=== PATIENT | male | born 1945 | race Caucasian/White ===

== ENCOUNTER 2016-10-20 00:27 | Emergency (ER) | payer MEDICARE, OTHER ==
[2016-10-20] MEDS ORDERED: ACETAMINOPHEN 325 MG TABLET PO ONE (01:18)
[2016-10-20] MEDS ORDERED: ASPIRIN 81 MG TABLET, CHEWABLE PO ONE (05:26)
[2016-10-20] MEDS ORDERED: IPRATROPIUM/ALBUTEROL 0.5-2.5 MG/3 ML AMPUL NEB ONE (05:26)
[2016-10-20] MEDS ORDERED: PREDNISONE 20 MG TABLET PO ONE (05:27)
--- NOTE | 2016-10-20 05:28 | ER Document Report ---
ED Medical Screen (RME) - General Chief Complaint: Epigastric Pain Stated Complaint: CHEST PAIN Time Seen by Provider: 10/20/16 05:25 Mode of Arrival: Ambulatory Information source: Patient Notes: Patient presents complaining of midsternal chest pain that he describes as a pressure that started around 9:30 PM. Patient currently states that the pain has completely resolved. Patient does report nausea but denies any vomiting. Patient denies any shortness of breath. Patient denies any change in his chronic cough. Patient does state that he uses a nebulizer at home but is currently out of his medications. hx: Dyslipidemia, GERD TRAVEL OUTSIDE OF THE [place] IN LAST 30 DAYS: No - Related Data Allergies/Adverse Reactions: No Known Allergies Allergy (Verified 06/24/15 09:09) Past Medical History - Past Medical History Cardiac Medical History: Reports: Hx Hypercholesterolemia Denies: Hx Coronary Artery Disease - HIGH CHOLESTEROL, Hx Heart Attack, Hx Hypertension Pulmonary Medical History: Denies: Hx Asthma, Hx Bronchitis, Hx COPD, Hx Pneumonia Neurological Medical History: Denies: Hx Cerebrovascular Accident, Hx Seizures Renal/ Medical History: Denies: Hx Peritoneal Dialysis GI Medical History: Reports: Hx Gastroesophageal Reflux Disease Musculoskeltal Medical History: Reports Hx Arthritis Past Surgical History: Reports: Hx Orthopedic Surgery - left arm - Immunizations Hx Diphtheria, Pertussis, Tetanus Vaccination: Yes Physical Exam - Vital signs Vitals: Temp Pulse Resp BP Pulse Ox 97.7 F 78 18 194/83 H 96 10/20/16 00:39 10/20/16 00:39 10/20/16 00:39 10/20/16 00:39 10/20/16 00:39 - Respiratory Respiratory status: No respiratory distress Breath sounds: Wheezing Chest palpation: Normal - Cardiovascular Rhythm: Regular Heart sounds: S1 appreciated, S2 appreciated Course - Vital Signs Vital signs: Temp Pulse Resp BP Pulse Ox 97.7 F 78 18 194/83 H 96 10/20/16 00:39 10/20/16 00:39 10/20/16 00:39 10/20/16 00:39 10/20/16 00:39
[2016-10-20 06:10] LABS: ABSOLUTE BASOPHILS # (AUTO) 0.1 10^3/uL (0.0-0.2); ABSOLUTE EOSINOPHILS # (AUTO) 0.1 10^3/uL (0.0-0.6); ABSOLUTE LYMPHOCYTES (AUTO) 1.6 10^3/uL (0.5-4.7); ABSOLUTE MONOCYTES (AUTO) 0.6 10^3/uL (0.1-1.4); ABSOLUTE NEUT (AUTO) 8.3 10^3/uL (1.7-8.2); BASOPHILS % (AUTO) 0.6 % (0-2); EOSINOPHILS % (AUTO) 0.8 % (0-6); HEMATOCRIT 51.5 % (37.9-51.0); HEMOGLOBIN 17.1 g/dL (13.5-17.0); HGB HCT DIFFERENCE -0.2; LYMPHOCYTES % (AUTO) 14.7 % (13-45); MEAN CORPUSCULAR HEMOGLOBIN 30.3 pg (27.0-33.4); MEAN CORPUSCULAR HGB CONC 33.2 g/dL (32.0-36.0); MEAN CORPUSCULAR VOLUME 91 fl (80-97); MONOCYTES % (AUTO) 5.5 % (3-13); RED BLOOD COUNT 5.65 10^6/uL (4.35-5.55); RED CELL DISTRIBUTION WIDTH 12.8 % (11.5-14.0); SEGMENTED NEUTROPHILS % (AUTO) 78.4 % (42-78); WHITE BLOOD COUNT 10.6 10^3/uL (4.0-10.5)
[2016-10-20 06:22] LABS: ALANINE AMINOTRANSFERASE 34 U/L (21-72); ALBUMIN 3.8 g/dL (3.5-5.0); ALKALINE PHOSPHATASE 94 U/L (38-126); ANION GAP 10 (5-19); ASPARTATE AMINO TRANSFERASE 25 U/L (17-59); BILIRUBIN,DIRECT 0.4 mg/dL (0.0-0.4); BILIRUBIN,TOTAL 0.8 mg/dL (0.2-1.3); BLOOD UREA NITROGEN 9 mg/dL (7-20); CALCIUM 9.4 mg/dL (8.4-10.2); CARBON DIOXIDE 27 mmol/L (22-30); CHLORIDE 102 mmol/L (98-107); CREATINE KINASE 77 U/L (55-170); CREATININE RESULT 0.89 mg/dL (0.52-1.25); GLUCOSE 161 mg/dL (75-110); MAGNESIUM 2.1 mg/dL (1.6-2.3); POTASSIUM 4.4 mmol/L (3.6-5.0); SODIUM 139.2 mmol/L (137-145); TOTAL PROTEIN 7.1 g/dL (6.3-8.2)
[2016-10-20] MEDS ORDERED: METOCLOPRAMIDE HCL ORAL SOLN 10 MG/10 ML UDCUP PO ONE (06:25)
[2016-10-20] MEDS ORDERED: LIDOCAINE 2% VISCOUS SOLN 20 ML UDCUP PO ONE (06:25)
[2016-10-20] MEDS ORDERED: MAG HYDROX/AL HYDROX/SIMETH SUSP 30 ML UDCUP PO ONE (06:25)
[2016-10-20 06:32] LABS: CREATINE KINASE MB 0.67 ng/mL (<4.55); TROPONIN I < 0.012 ng/mL
--- NOTE | 2016-10-20 06:56 | RADIOLOGY REPORT (SQ) ---
EXAM DESCRIPTION: CHEST PA/LAT COMPLETED DATE/TIME: 10/20/2016 6:47 am REASON FOR STUDY: cp COMPARISON: 06/22/2015. EXAM PARAMETERS: NUMBER OF VIEWS: two views TECHNIQUE: Digital Frontal and Lateral radiographic views of the chest acquired. RADIATION DOSE: NA LIMITATIONS: none FINDINGS: LUNGS AND PLEURA: Small bandlike atelectasis or scar of the lingula consistent with prior exam, 06/22/2015. Mild interstitial markings slightly worsened. MEDIASTINUM AND HILAR STRUCTURES: No masses or contour abnormalities. HEART AND VASCULAR STRUCTURES: Heart normal size. No evidence for failure. BONES: No acute findings. HARDWARE: None in the chest. OTHER: No other significant finding. IMPRESSION: Mild interstitial markings may indicate pulmonary edema and/or chronic interstitial lung disease. Likely lingular scar or recurrent lingular pneumonia. TECHNICAL DOCUMENTATION: JOB ID: [id number] [employer]- All Rights Reserved
[2016-10-20] MEDS ORDERED: AZITHROMYCIN 250 MG TABLET PO ONE (07:59)
[2016-10-20] MEDS ORDERED: ALBUTEROL SULFATE HFA (90 MCG/PUFF) 8 GM MDI (1 MDI/ER DISP) IH ONE (09:32)
--- NOTE | 2016-10-20 09:32 | ER Document Report ---
ED General - General Chief Complaint: Epigastric Pain Stated Complaint: CHEST PAIN Time Seen by Provider: 10/20/16 05:25 Mode of Arrival: Ambulatory TRAVEL OUTSIDE OF THE [place] IN LAST 30 DAYS: No - HPI Patient complains to provider of: Epigastric chest pain Notes: Patient coming in today for epigastric pain and chest pain. Patient states started at 9:00 night prior to arrival. Patient states no nausea no vomiting states he did have pizza prior to having the chest pain. Patient states he takes omeprazole once daily although this is prescribed for twice daily. Patient states compliance with medication. Patient does smoke states he does have a history of COPD currently out of his inhalers. Patient denies any shortness of breath. Patient states cough nonproductive. Denies any cardiac history. Patient upon my examination is resting comfortably easily arousable states that currently at this time chest pain is much resolved with Tylenol. 1 out of 10 - Related Data Allergies/Adverse Reactions: No Known Allergies Allergy (Verified 06/24/15 09:09) Past Medical History - General Information source: Patient - Social History Smoking Status: Current Every Day Smoker Frequency of alcohol use: None Drug Abuse: None Family History: Reviewed & Not Pertinent Patient has suicidal ideation: No Patient has homicidal ideation: No - Past Medical History Cardiac Medical History: Reports: Hx Hypercholesterolemia Denies: Hx Coronary Artery Disease - HIGH CHOLESTEROL, Hx Heart Attack, Hx Hypertension Pulmonary Medical History: Denies: Hx Asthma, Hx Bronchitis, Hx COPD, Hx Pneumonia Neurological Medical History: Denies: Hx Cerebrovascular Accident, Hx Seizures Renal/ Medical History: Denies: Hx Peritoneal Dialysis GI Medical History: Reports: Hx Gastroesophageal Reflux Disease Musculoskeltal Medical History: Reports Hx Arthritis Past Surgical History: Reports: Hx Orthopedic Surgery - left arm - Immunizations Hx Diphtheria, Pertussis, Tetanus Vaccination: Yes Review of Systems - Review of Systems Constitutional: No symptoms reported EENT: No symptoms reported Cardiovascular: Chest pain Respiratory: No symptoms reported Gastrointestinal: No symptoms reported Genitourinary: No symptoms reported Male Genitourinary: No symptoms reported Musculoskeletal: No symptoms reported Skin: No symptoms reported Hematologic/Lymphatic: No symptoms reported Neurological/Psychological: No symptoms reported -: Yes All other systems reviewed and negative Physical Exam - Vital signs Vitals: Temp Pulse Resp BP Pulse Ox 97.7 F 78 18 194/83 H 96 10/20/16 00:39 10/20/16 00:39 10/20/16 00:39 10/20/16 00:39 10/20/16 00:39 Interpretation: Normal - General General appearance: Appears well, Alert - HEENT Head: Normocephalic, Atraumatic Eyes: Normal Pupils: PERRL - Respiratory Respiratory status: No respiratory distress Chest status: Nontender Breath sounds: Rhonchi, Wheezing Chest palpation: Normal - Cardiovascular Rhythm: Regular Heart sounds: Normal auscultation Murmur: No - Abdominal Inspection: Normal Distension: No distension Bowel sounds: Normal Tenderness: Nontender Organomegaly: No organomegaly - Back Back: Normal, Nontender - Extremities General upper extremity: Normal inspection, Nontender, Normal color, Normal ROM , Normal temperature General lower extremity: Normal inspection, Nontender, Normal color, Normal ROM , Normal temperature, Normal weight bearing. No: Minesh's sign - Neurological Neuro grossly intact: Yes Cognition: Normal Orientation: AAOx4 Lopez Coma Scale Eye Opening: Spontaneous Lopez Coma Scale Verbal: Oriented Lopez Coma Scale Motor: Obeys Commands Lopez Coma Scale Total: 15 Speech: Normal Motor strength normal: LUE, RUE, LLE, RLE Sensory: Normal - Psychological Associated symptoms: Normal affect, Normal mood - Skin Skin Temperature: Warm Skin Moisture: Dry Skin Color: Normal Course - Re-evaluation Re-evalutation: 10/20/16 09:50 Laboratory results did not show any critical pathology. Troponins are negative 2. Repeat EKG and initial EKG are negative for any acute pathology. Patient is examination is consistent with wheezing possible early bronchitis. Patient was started on prednisone inhalers and Zithromax. Patient was encouraged to continue taking his omeprazole as prescribed and follow-up with a GI specialist. Patient did have total resolution of pain after GI cocktail. The patient has atypical chest pain as the patient's chest pain is not suggestive of pulmonary embolus, cardiac ischemia, aortic dissection, or other serious etiology. Given the extremely low risk of these diagnoses further testing and evaluation for these possibilities does not appear to be indicated at this time. The patient has been instructed to return if the symptoms worsen or change in any way. 10/20/16 09:52 - Vital Signs Vital signs: Temp Pulse Resp BP Pulse Ox 97.7 F 79 16 145/94 H 92 10/20/16 00:39 10/20/16 00:39 10/20/16 09:01 10/20/16 09:01 10/20/16 09:01 - Laboratory Result Diagrams: 10/20/16 05:54 10/20/16 05:54 Laboratory results interpreted by me: 10/20/16 10/20/16 05:54 05:54 WBC 10.6 H RBC 5.65 H Hgb 17.1 H Hct 51.5 H Seg Neutrophils % 78.4 H Absolute Neutrophils 8.3 H Glucose 161 H Discharge - Discharge Clinical Impression: Epigastric pain COPD (chronic obstructive pulmonary disease) Qualifiers: COPD type: unspecified COPD Qualified Code(s): J44.9 - Chronic obstructive pulmonary disease, unspecified Condition: Good Disposition: ADMITTED OBSERVATION Instructions: Abdominal Pain ([facility]), Chronic Obstructive Lung Disease ([facility]) Additional Instructions: Examination today shows a normal EKG normal lab work looking for signs of a heart attack. Your chest x-ray is concerning for possible beginning of bronchitis or pneumonia. We will start you on a medication called azithromycin for the bronchitis we will also place you on an inhaler 2 puffs every 4 hours for the next 5 days and steroids to aid with her wheezing and breathing. Please follow-up with your primary care physician. Your pain to his pain today may be related to gastritis. I would highly recommend following up with your doctor possible GI specialist. We will start a medication called omeprazole. Please take as directed. Prescriptions: Azithromycin [Zithromax 250 mg Tablet] 250 mg PO ASDIR PRN #6 tablet PRN Reason: Omeprazole 20 mg PO DAILY #14 capsule. Prednisone [Deltasone] 40 mg PO DAILY 5 Days
[2016-10-20 09:38] VITALS: BP 145/94
--- NOTE | 2016-10-22 09:26 | EKG REPORT ---
SEVERITY:- NORMAL ECG - SINUS RHYTHM : Confirmed by: Lynda Diaz 22-Oct-2016 09:24:44
--- NOTE | 2016-10-22 09:26 | EKG REPORT ---
SEVERITY:- OTHERWISE NORMAL ECG - SINUS RHYTHM BORDERLINE LEFT AXIS DEVIATION : Confirmed by: Lynda Diaz 22-Oct-2016 09:24:40
== END 2016-10-20 09:48 | disposition admitted as inpatient to this hospital (09) ==
LOC: ER 00:27
DX: J44.9 Chronic obstructive pulmonary disease, unspecified (principal); K21.9 Gastro-esophageal reflux disease without esophagitis; T47.1X6A Underdosing of other antacids and anti-gastric-secretion drugs, initial encounter; Z91.138 Patient's unintentional underdosing of medication regimen for other reason; Z91.14 Patient's other noncompliance with medication regimen; Z79.899 Other long term (current) drug therapy; R05 Cough; R07.89 Other chest pain; R10.13 Epigastric pain; F17.200 Nicotine dependence, unspecified, uncomplicated
CPT/HCPCS: 93005; 94640; 99285; 36415; 82553; 82550; 83690; 83735; 85025; 80053; 84484; 71020; 93010; A9270 ×6; J3490 ×2; J7512; J7620

== ENCOUNTER 2018-08-09 21:05 | Emergency (ER) | payer MEDICARE, OTHER ==
[2018-08-09] MEDS ORDERED: NORMAL SALINE 1000 ML 1,000 ML IV ONE ×2 (22:03→22:20)
--- NOTE | 2018-08-09 22:25 | ER Document Report ---
ED General - General Chief Complaint: Shortness Of Breath Stated Complaint: SHORTNESS OF BREATH Time Seen by Provider: 08/09/18 21:56 Primary Care Provider: RHEA DUFFY MD [ACTIVE STAFF] - 08/11/18 Notes: Patient is a 72 year old male that comes to the Emergency Department for chief complaint of chills and breaking out into sweats since yesterday evening, he states today he has also developed a cough, has had increased episodes of chills, sweats, believes he is running a fever. He denies chest pain, headache, abdominal pain, flank pain. He did have nausea earlier today. Patient received chemotherapy on Saturday, he has a history of lung cancer, status post left lung removal 2 months ago at [place], follows with oncologist Dr. Duffy. Former smoker. Past medical history of GERD and hyperlipidemia. Denies medical history otherwise. TRAVEL OUTSIDE OF THE [place] IN LAST 30 DAYS: No - Related Data Allergies/Adverse Reactions: No Known Allergies Allergy (Verified 08/09/18 21:11) Past Medical History - General Information source: Patient - Social History Smoking Status: Former Smoker Frequency of alcohol use: None Drug Abuse: None Lives with: Family Family History: Reviewed & Not Pertinent - Past Medical History Cardiac Medical History: Reports: Hx Hypercholesterolemia Denies: Hx Coronary Artery Disease - HIGH CHOLESTEROL, Hx Heart Attack, Hx Hypertension Pulmonary Medical History: Denies: Hx Asthma, Hx Bronchitis, Hx COPD, Hx Pneumonia Neurological Medical History: Denies: Hx Cerebrovascular Accident, Hx Seizures Renal/ Medical History: Denies: Hx Peritoneal Dialysis GI Medical History: Reports: Hx Gastroesophageal Reflux Disease Musculoskeletal Medical History: Reports Hx Arthritis Past Surgical History: Reports: Hx Orthopedic Surgery - left arm - Immunizations Hx Diphtheria, Pertussis, Tetanus Vaccination: Yes Review of Systems - Review of Systems Constitutional: See HPI EENT: No symptoms reported Cardiovascular: No symptoms reported Respiratory: See HPI Gastrointestinal: No symptoms reported Genitourinary: No symptoms reported Male Genitourinary: No symptoms reported Musculoskeletal: No symptoms reported Skin: No symptoms reported Hematologic/Lymphatic: No symptoms reported Neurological/Psychological: No symptoms reported Physical Exam - Vital signs Vitals: Temp Pulse Resp BP Pulse Ox 99.5 F 110 H 26 H 143/63 H 98 08/09/18 21:09 08/09/18 21:09 08/09/18 21:09 08/09/18 21:09 08/09/18 21:09 - Notes Notes: GENERAL: Alert, interacts well. No acute distress. HEAD: Normocephalic, atraumatic. EYES: Pupils equal, round, and reactive to light. Extraocular movements intact. ENT: Oral mucosa moist, tongue midline. Oropharynx unremarkable. Airway patent. Nares patent, no nasal septal hematoma, TM's intact. NECK: Full range of motion. Supple. Trachea midline. LUNGS: Decreased breath sounds on the left. Unremarkable breath sounds on the right. Occasional cough. No tachypnea or labored breathing. HEART: Borderline tachycardia, normal rhythm, no murmur ABDOMEN: Soft, non-tender. Non-distended. Bowel sounds present in all 4 quadrants. GENITOURINARY: Deferred EXTREMITIES: Moves all 4 extremities spontaneously. No edema, normal radial and dorsalis pedis pulses bilaterally. No cyanosis. BACK: no cervical, thoracic, lumbar midline tenderness. No saddle anesthesia, normal distal neurovascular exam. NEUROLOGICAL: Alert and oriented x3. Normal speech. [cranial nerves II through XII grossly intact]. PSYCH: Normal affect, normal mood. SKIN: Warm, dry, normal turgor. No rashes or lesions noted. Course - Re-evaluation Re-evalutation: Patient does have an intermittent cough. No tachypnea or labored breathing. No hypoxia despite him only having one lung. Chest x-ray does not show any concerning new finding. Patient initially mildly tachycardic but this resolved after he was given IV fluids. Patient is not febrile here, blood pressure unremarkable. CBC shows leukopenia, absolute neutrophils 1.3, ANC is almost 13,000. Mild neutropenia. Chemistry unremarkable, urinalysis unremarkable, influenza negative. Troponin is negative. Lactic acid and blood gas unremarkable. Discussed with patient, discussed possible admission because of his neutropenia, cough, possible fever. He states he does not want to be admitted and he wants to go home. He states he will take antibiotics for coverage but he is requesting to leave. Patient has not had a fever here, he states his highest recorded fever at home was 100.1, technically he has not had a fever. We have blood cultures pending. I discussed with Dr. Sands. I discussed with Dr. Duffy, patient's oncologist. Recommendation is for patient to be started on Levaquin p.o., perform close follow-up in her office, and perform strict return precautions. I discussed this with patient and family in detail. They state satisfaction and agreement with plan. Stable at time of discharge. - Vital Signs Vital signs: Temp Pulse Resp BP Pulse Ox 98.9 F 110 H 20 131/94 H 99 08/10/18 01:59 08/09/18 21:09 08/10/18 01:01 08/10/18 01:59 08/10/18 01:58 - Laboratory Result Diagrams: 08/09/18 22:20 08/09/18 22:20 Laboratory results interpreted by me: 08/09/18 08/09/18 08/10/18 22:20 22:20 00:15 WBC 2.1 L RBC 3.92 L Hgb 11.9 L Hct 33.6 L Plt Count 45 L Monocytes % 0.6 L Absolute Neutrophils 1.3 L Absolute Monocytes 0.0 L Sodium 135.9 L Glucose 118 H Urine Urobilinogen 2.0 H Discharge - Discharge Clinical Impression: Cough, Chills Condition: Stable Disposition: HOME, SELF-CARE Additional Instructions: I spoke to Dr. Wendy landaverde in regards to your workup and evaluation. Recommendation is for you to be on the antibiotic prescribed, you already received her dose for today (08/10/2018). We have blood cultures pending. Call her office for close follow-up and additional management. Return if you worsen including spiking temperatures, difficulty breathing, vomiting, or any other concerning or worsening symptoms. Prescriptions: Levofloxacin [Levaquin 750 mg Tablet] 750 mg PO DAILY 4 Days #4 tablet Referrals: RHEA DUFFY MD [ACTIVE STAFF] - 08/11/18
[2018-08-09 22:39] LABS: ABSOLUTE LYMPHOCYTES (AUTO) 0.8 10^3/uL (0.5-4.7); ABSOLUTE NEUT (AUTO) 1.3 10^3/uL (1.7-8.2); BASOPHILS % (AUTO) 0.3 % (0-2); EOSINOPHILS % (AUTO) 0.3 % (0-6); HEMATOCRIT 33.6 % (37.9-51.0); HEMOGLOBIN 11.9 g/dL (13.5-17.0); LYMPHOCYTES % (AUTO) 37.4 % (13-45); MEAN CORPUSCULAR HEMOGLOBIN 30.4 pg (27.0-33.4); MEAN CORPUSCULAR HGB CONC 35.4 g/dL (32.0-36.0); MEAN CORPUSCULAR VOLUME 86 fl (80-97); MONOCYTES % (AUTO) 0.6 % (3-13); RED BLOOD COUNT 3.92 10^6/uL (4.35-5.55); RED CELL DISTRIBUTION WIDTH 12.7 % (11.5-14.0); SEGMENTED NEUTROPHILS % (AUTO) 61.4 % (42-78); TOTAL CELLS COUNTED % (AUTO) 100 %; VENOUS BLOOD BASE EXCESS 1.2 mmol/L; VENOUS BLOOD HCO3 25.8 mmol/L (20-32); VENOUS BLOOD PCO2 40.9 mmHg (35-63); VENOUS BLOOD PH 7.42 (7.30-7.42); WHITE BLOOD COUNT 2.1 10^3/uL (4.0-10.5)
[2018-08-09 22:41] LABS: PLATELET COUNT 45 10^3/uL (150-450)
--- NOTE | 2018-08-09 22:50 | RADIOLOGY REPORT (SQ) ---
EXAM DESCRIPTION: XR CHEST 2 VIEWS COMPLETED DATE/TME: 08/09/2018 21:30 CLINICAL HISTORY: 72 years Male, SOB COMPARISON:Oct 20 2016 NUMBER OF VIEWS/TECHNIQUE: 1/AP FINDINGS: Complete obscuration, "white out" of the left hemithorax, normal cardiac silhouette, and intact bony thorax. IMPRESSION: Complete obscuration, "white out "of the left hemithorax. Differential diagnosis includes effusion, hemorrhage/contusion, collapse, and infectious/neoplastic processes.
[2018-08-09 22:51] LABS: ALANINE AMINOTRANSFERASE 35 U/L (21-72); ALBUMIN 3.5 g/dL (3.5-5.0); ALKALINE PHOSPHATASE 95 U/L (38-126); ANION GAP 9 (5-19); ASPARTATE AMINO TRANSFERASE 20 U/L (17-59); BILIRUBIN,DIRECT 0.4 mg/dL (0.0-0.4); BILIRUBIN,TOTAL 0.8 mg/dL (0.2-1.3); BLOOD UREA NITROGEN 15 mg/dL (7-20); CARBON DIOXIDE 26 mmol/L (22-30); CHLORIDE 101 mmol/L (98-107); GLUCOSE 118 mg/dL (75-110); POTASSIUM 3.9 mmol/L (3.6-5.0); SODIUM 135.9 mmol/L (137-145); TOTAL PROTEIN 6.4 g/dL (6.3-8.2)
[2018-08-10 00:33] LABS: APPEARANCE,URINE CLEAR; BILIRUBIN,URINE NEGATIVE (NEGATIVE); COLOR,URINE YELLOW; GLUCOSE, URINE NEGATIVE (NEGATIVE); KETONES,URINE NEGATIVE (NEGATIVE); LEUKOCYTE ESTERASE,URINE NEGATIVE (NEGATIVE); NITRITE,URINE NEGATIVE (NEGATIVE); PROTEIN,URINE NEGATIVE (NEGATIVE); URINE SPECIFIC GRAVITY 1.023
[2018-08-10 00:54] LABS: A TYPE INFLUENZA AG NEGATIVE (NEGATIVE); B INFLUENZA AG NEGATIVE (NEGATIVE)
[2018-08-10] MEDS ORDERED: LEVOFLOXACIN 750 MG TABLET PO ONE (01:18)
[2018-08-10 02:03] VITALS: BP 131/94
--- NOTE | 2018-08-10 11:06 | EKG REPORT ---
SEVERITY:- NORMAL ECG - SINUS RHYTHM : Confirmed by: Vita Valencia MD 10-Aug-2018 11:05:44
== END 2018-08-10 02:00 | disposition home or self-care (01) ==
LOC: ER 21:05
DX: R05 Cough (principal); R06.02 Shortness of breath; R68.83 Chills (without fever); R11.0 Nausea; Z85.118 Personal history of other malignant neoplasm of bronchus and lung
CPT/HCPCS: 93005; 99285; 96360; 36415; 87040; 85025; 80053; 81001; 84484; 82803; 83605; 87804; 71046; 93010; J7030; A9270

== ENCOUNTER 2019-03-16 07:08 | Day surgery (SDC) | payer OTHER, MEDICARE ==
[2019-03-16] MEDS ORDERED: PROPOFOL INJ 200 MG/20 ML VIAL IV ONE (07:38)
[2019-03-16] MEDS ORDERED: SIMETHICONE 80 MG TAB.CHEW ONE (09:20)
[2019-03-16 09:32] VITALS: BP 144/92
--- NOTE | 2019-03-16 12:33 | Operative Report ---
Operative Report DATE OF SURGERY: 03/16/19 Operative Report: The risks, benefits and alternatives of the procedure including the risk of bleeding, perforation requiring surgery have been explained to the patient in detail and informed consent has been obtained. Patient is taken back to the endoscopy suite and placed in the left, lateral decubital position. Timeout was called. Propofol medication is administered. Rectal examination is done which did not reveal any masses, tears or fissures. An Olympus videoscope was introduced into the patient's rectum. Scope was then carefully advanced all the way to the cecum. Cecum was identified by the usual anatomical landmarks of the ileocecal valve as well as the appendiceal office. Photodocumentation is obtained. Scope was then sequentially pulled back via the various segments of the colon including the ascending colon, hepatic flexure, transverse colon, spl enic flexure, descending colon finding to the rectosigmoid portions of the colon. Retroflexion maneuvers performed. PREOPERATIVE DIAGNOSIS: Family history of colorectal cancer. Surveillance colonoscopy POSTOPERATIVE DIAGNOSIS: Small sessile polyp versus inflammation noted on the right-hand side of the colon status post biopsy. Internal hemorrhoids OPERATION: Colonoscopy with biopsy SURGEON: JOANNA NEAL ANESTHESIA: LMAC TISSUE REMOVED OR ALTERED: As noted above. COMPLICATIONS: None. ESTIMATED BLOOD LOSS: None. INTRAOPERATIVE FINDINGS: As noted above. PROCEDURE: Patient tolerated the procedure well. No immediate postprocedure complications are noted. Patient is discharged in good condition. Discharge date 03/16/2019. Discharge diet: Regular. Discharge activity: Regular. 2 to 3-week follow-up to discuss findings. Patient is instructed to call the office or proceed to the emergency room should there be any further problems or questions. Wait on the pathology. 5-year surveillance colonoscopy due to family history.
== END 2019-03-16 09:40 | disposition home or self-care (01) ==
LOC: END 07:08
PROVIDERS: ATTEND Internal Medicine Gastroenterology
DX: Z12.11 Encounter for screening for malignant neoplasm of colon (principal); K64.8 Other hemorrhoids; Z80.0 Family history of malignant neoplasm of digestive organs; F17.210 Nicotine dependence, cigarettes, uncomplicated; Z79.899 Other long term (current) drug therapy
CPT/HCPCS: 45380; 88305 ×2; 00812; J2704; 812